=== PATIENT | female | born 1935 | race Hispanic/Latino ===

== ENCOUNTER → 2020-06-28 | Day surgery (SDC) | payer MEDICARE, OTHER ==
[~2020-06-28] MED LIST: AMLODIPINE BESYL5 MG PO; BUSPIRONE HCL5 MG PO; DEXAMETHASONE PHOS 24 MG/ML 10ML VIAL IV ONE; METOPROLOL; OFLOXACIN 0.3% (OTIC SOL) 5 ML BTL ONE
[2020-06-28 08:40] VITALS: BP 146/67
== END | disposition home or self-care (01) ==
LOC: OR 05:19
PROVIDERS: ATTEND Otolaryngology Otolaryngology/Facial Plastic Surgery
DX: H91.23 Sudden idiopathic hearing loss, bilateral (principal); I10 Essential (primary) hypertension; R94.31 Abnormal electrocardiogram [ECG] [EKG]; Z01.810 Encounter for preprocedural cardiovascular examination; Z01.818 Encounter for other preprocedural examination; Z01.812 Encounter for preprocedural laboratory examination; Z20.828 Contact with and (suspected) exposure to other viral communicable diseases; Z79.899 Other long term (current) drug therapy; Z88.0 Allergy status to penicillin
CPT/HCPCS: 71046; 93005